=== PATIENT | female | born 2000 | race Caucasian/White ===

== ENCOUNTER 2020-07-03 17:53 | Emergency (ER) | payer BC ==
--- NOTE | 2020-07-03 18:38 | EDM.PDOC ---
ED HPI GENERAL MEDICAL PROBLEM - General Chief Complaint: Lower Extremity Injury/Pain Stated Complaint: SWOLLEN AND RED KNEE Time Seen by Provider: 07/03/20 18:36 Source of Information: Reports: Patient History Limitations: Reports: No Limitations - History of Present Illness INITIAL COMMENTS - FREE TEXT/NARRATIVE: Patient is a 19-year-old female who presents to the ED complaining of anterior pain to the left knee with swelling, increased warmth, scab with redness around it. She has increasing pain with ambulation and also with bending. She is able to bend it but notes it feels tight along the anterior aspect of her knee. She states last week while at a rodeo she was riding a horse and fell off of it landing on her knee. She states the ground was quite hard and she had some swelling thereafter with some bruising. She was seen by the [employer] trainer to which they noted there was no torn ligaments. Today she has noticed increased swelling to her knee with worsening pain. There has been no documented fever, redness streaking up her leg, posterior calf pain, shortness of breath, chest pain, or any additional complaints. She has used ibuprofen with minimal relief. She denies being . She is on control. She does not smoke. No history of diabetes or additional past medical history. She is on no medications other than the ibuprofen. Left Knee Pain Score (Numeric/FACES): 5 - Related Data Allergies Allergy/AdvReac Type Severity Reaction Status Date / Time No Known Allergies Allergy Verified 07/03/20 18:11 Home Meds: Home Meds Acetaminophen/HYDROcodone [Chantilly 325-5 MG] 1 tab PO Q6H PRN #6 tablet 07/03/20 [Rx] Sulfamethoxazole/Trimethoprim [Bactrim Ds Tablet] 1 each PO BID #14 tablet 07/03/20 [Rx] Past Medical History - Past Health History Medical/Surgical History: Denies Medical/Surgical History Social & Family History - Family History Family Medical History: Noncontributory - Tobacco Use Smoking Status *Q: Never Smoker - Caffeine Use Caffeine Use: Reports: None - Recreational Drug Use Recreational Drug Use: No Review of Systems - Review of Systems Review Of Systems: Comprehensive ROS is negative, except as noted in HPI. ED EXAM, GENERAL - Physical Exam Exam: See Below Exam Limited By: No Limitations General Appearance: Alert, WD/WN, No Apparent Distress Nose: Normal Inspection Neck: Normal Inspection, Supple Respiratory/Chest: No Respiratory Distress, Lungs Clear, Normal Breath Sounds Cardiovascular: Normal Peripheral Pulses, Regular Rate, Rhythm Peripheral Pulses: 2+: Posterior Tibial (L) Extremities: Other (Left knee. Small scab noted to the patellar region with localized redness along the scab. Swelling noted to the knee with increasing pain with palpation on the anterior aspect of the knee. No pain along the joint spaces. No pain posteriorly. No pain along the posterior aspect of the calf. Bruising noted to the left knee. Increasing pain with flexion secondary to discomfort to the anterior aspect of the knee described as being tight. Slight increased warmth noted. Redness streaking up her leg. No open wound draining.) Course - Vital Signs Last Recorded V/S: Last Vital Signs Temp 98.6 F 07/03/20 18:09 Pulse 107 H 07/03/20 18:09 Resp 14 07/03/20 18:09 BP 146/100 H 07/03/20 18:09 Pulse Ox 97 07/03/20 18:09 - Orders/Labs/Meds Orders: Active Orders 24 hr Category Date Time Status Knee 3V Lt [CR] Stat Exams 07/03/20 19:12 Taken DME for Discharge [COMM] Stat Oth 07/03/20 22:14 Ordered Peripheral IV Insertion Adult [OM.PC] Routine Oth 07/03/20 19:12 Ordered Labs: Laboratory Tests 07/03/20 07/03/20 07/03/20 Range/Units 19:43 19:43 19:43 WBC 12.11 H (3.98-10.04) K/mm3 RBC 4.75 (3.98-5.22) M/mm3 Hgb 14.0 (11.2-15.7) gm/dl Hct 41.9 (34.1-44.9) % MCV 88.2 (79.4-94.8) fl MCH 29.5 (25.6-32.2) pg MCHC 33.4 (32.2-35.5) g/dl RDW Std Deviation 41.1 (36.4-46.3) fL Plt Count 370 H (182-369) K/mm3 MPV 9.1 L (9.4-12.3) fl Neut % (Auto) 66.1 (34.0-71.1) % Lymph % (Auto) 23.2 (19.3-51.7) % [place] % (Auto) 9.3 (4.7-12.5) % Eos % (Auto) 1.0 (0.7-5.8) Baso % (Auto) 0.2 (0.1-1.2) % Neut # (Auto) 8.00 H (1.56-6.13) K/mm3 Lymph # (Auto) 2.81 (1.18-3.74) K/mm3 [place] # (Auto) 1.13 H (0.24-0.36) K/mm3 Eos # (Auto) 0.12 (0.04-0.36) K/mm3 Baso # (Auto) 0.02 (0.01-0.08) K/mm3 Manual Slide Review Abnormal smear Sodium 139 (136-145) mEq/L Potassium 3.4 L (3.5-5.1) mEq/L Chloride 102 (98-107) mEq/L Carbon Dioxide 26 (21-32) mEq/L Anion Gap 14.4 (5-15) BUN 12 (7-18) mg/dL Creatinine 1.0 (0.55-1.02) mg/dL Est Cr Clr Drug Dosing 73.61 mL/min Estimated GFR (MDRD) > 60 (>60) mL/min BUN/Creatinine Ratio 12.0 L (14-18) Glucose 95 (74-106) mg/dL Calcium 9.2 (8.5-10.1) mg/dL Total Bilirubin 0.3 (0.2-1.0) mg/dL AST 18 (15-37) U/L ALT 25 (14-59) U/L Alkaline Phosphatase 83 (46-116) U/L C-Reactive Protein 0.7 (<1.0) mg/dL Total Protein 8.0 (6.4-8.2) g/dl Albumin 3.9 (3.4-5.0) g/dl Globulin 4.1 gm/dL Albumin/Globulin Ratio 1.0 (1-2) HCG, Qual Negative (NEGATIVE) Meds: Medications Discontinued Medications Generic Name Dose Route Start Last Admin Trade Name Freq PRN Reason Stop Dose Admin Hydromorphone HCl 0.5 mg 07/03/20 19:13 07/03/20 19:37 Dilaudid IVPUSH 07/03/20 19:14 0.5 mg ONETIME ONE Administration Sodium Chloride 1,000 mls @ 999 mls/hr 07/03/20 19:12 07/03/20 19:36 Normal Saline IV 07/03/20 20:12 999 mls/hr ONETIME ONE Administration Sodium Chloride 1,000 mls @ 150 mls/hr 07/03/20 19:14 Normal Saline IV 07/04/20 01:53 ASDIRECTED ONE Cefazolin Sodium/Dextrose 1 gm 50 mls @ 100 mls/hr 07/03/20 19:15 07/03/20 19:37 / Premix IV 07/03/20 19:44 100 mls/hr ONETIME ONE Administration Sodium Chloride 10 ml 07/03/20 19:12 Saline Flush FLUSH ASDIRECTED PRN Keep Vein Open Trimethoprim/Sulfamethoxazole 1 tab 07/03/20 22:14 07/03/20 22:50 Septra Ds PO 07/03/20 22:15 1 tab ONETIME ONE Administration - Re-Assessments/Exams Free Text/Narrative Re-Assessment/Exam: IV will be established with IV fluids and Dilaudid 0.5 mg IVP. Initial labs and studies will include: A CBC, CHEM 14, CRP and hCG serum. X-ray of the left knee will be obtained. X-ray of the left knee impression: No acute fracture. Suprapatellar joint effusion. Review: White blood cell count is 12.11. No left shift. Hemoglobin 14. Platelet count 370. Sodium 139, potassium 3.4, AG at 14.4 and creatinine 1.0. hCG was negative. CRP normal. Patient has prepatellar bursitis. I did discuss patient with Dr. Howard orthopedic surgeon over at [facility] and he agrees highly unlikely to be septic bursitis based on presentation and lab findings. Agreed with antibiotic plan. Suggested probably switching to Bactrim DS if any concern for MRSA. Kef michelle would be okay as well. Close follow-up required. Patient will be sent home with crutches. Discussed return precautions patient. She voiced understanding. Discharge instructions as document. Departure - Departure Time of Disposition: 22:11 Disposition: Home, Self-Care 01 Condition: Good Clinical Impression: Prepatellar bursitis Qualifiers: Laterality: left Qualified Code(s): M70.42 - Prepatellar bursitis, left knee - Discharge Information Prescriptions: Sulfamethoxazole/Trimethoprim [Bactrim Ds Tablet] 1 each PO BID #14 tablet Acetaminophen/HYDROcodone [Chantilly 325-5 MG] 1 tab PO Q6H PRN #6 tablet PRN Reason: Pain (Severe 7-10) Instructions: Crutch Use, Adult, [id number], Prepatellar Bursitis Rehab- [facility] Referrals: PCP,None [Primary Care Provider] - Forms: ED Department Discharge Additional Instructions: Utilize crutches to ambulate toe-touch only for balance. Elevate when able to reduce any swelling and pain. Take the Bactrim as prescribed. For mild to moderate pain may take Tylenol and ibuprofen in alternating fashion. For severe pain take Chantilly 1 tab p.o. every 6 hours as needed. Do not take Tylenol and Chantilly together. Do not drive this evening or while taking the Chantilly. Symptoms should improve in the next 48 to 72 hours. If you develop any new or worsening symptoms please return back to the ED as discussed. Follow-up with PCP in the next 3 to 5 days as needed. Sepsis Event Note (ED) - Evaluation Sepsis Screening Result: No Definite Risk - Focused Exam Vital Signs: Vital Signs Temp Pulse Resp BP Pulse Ox 07/03/20 18:09 98.6 F 107 H 14 146/100 H 97 - My Orders Last 24 Hours: My Active Orders 07/03/20 19:12 Knee 3V Lt [CR] Stat Peripheral IV Insertion Adult [OM.PC] Routine 07/03/20 22:14 DME for Discharge [COMM] Stat - Assessment/Plan Last 24 Hours: My Active Orders 07/03/20 19:12 Knee 3V Lt [CR] Stat Peripheral IV Insertion Adult [OM.PC] Routine 07/03/20 22:14 DME for Discharge [COMM] Stat
[2020-07-03] MEDS ORDERED: Sodium Chloride 0.9% 1,000 ML IV ONE ×2 (19:12→19:14)
[2020-07-03] MEDS ORDERED: Sodium Chloride 0.9% 10 ML Syringe FLUSH PRN (19:12)
[2020-07-03] MEDS ORDERED: HYDROmorphone 0.5 MG/0.5 ML Syringe IVPUSH ONE (19:13)
[2020-07-03] MEDS ORDERED: ceFAZolin 1 GM in Premix Bag 1 BAG IV ONE (19:15)
[2020-07-03] MEDS ORDERED: Sulfamethoxazole/Trimethoprim 800-160 MG Tab PO ONE (22:14)
--- NOTE | 2020-08-04 08:26 | CR ---
PROCEDURE INFORMATION: Exam: XR Left Knee Exam date and time: 07/03/2020 8:12 PM Age: 19 years old Clinical indication: Injury or trauma; Fall; Swelling (edema); Knee; Left TECHNIQUE: Imaging protocol: XR Left knee. Views: 3 views. COMPARISON: No relevant prior studies available. FINDINGS: Bones/joints: Small suprapatellar joint effusion. No neoplastic osseous lesion. No acute joint dislocation. No acute fracture. Soft tissues: No evidence of suspicious abnormal radiopaque foreign body. IMPRESSION: 1. No acute fracture. 2. Remainder of findings described as above. Thank you for allowing us to participate in the care of your patient. Dictated and Authenticated by: Hector Rausch MD 08/03/2020 10:18 PM Central Time ([place] & [place]) [place]
== END 2020-07-03 22:56 | disposition home or self-care (01) ==
LOC: JD.ED 17:53
DX: M70.42 Prepatellar bursitis, left knee (principal)
CPT/HCPCS: 36415; 73562; 80053; 84703; 85025; 86140; 96361; 96365; 96375; 99283; A9270; J0690; J1170; J7030